=== PATIENT | female | born 2000 | race Caucasian/White ===

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

== ENCOUNTER 2022-11-25 16:29 | Emergency (ER) | payer MEDICAID ==
[~2022-11-25] VITALS: Ht 154.9 cm; Wt 40.5 kg
[2022-11-25 16:37] VITALS: BP 101/69; PULSE 84; RESP 16; TEMP 98.6; O2SAT 96
== END 2022-11-25 20:18 | disposition left against medical advice (07) ==
LOC: ER 17:55
DX: Z53.21 Procedure and treatment not carried out due to patient leaving prior to being seen by health care provider (principal)
CPT/HCPCS: 99281

== ENCOUNTER 2023-04-03 10:59 | Emergency (ER) | payer MEDICAID ==
[~2023-04-03] VITALS: Ht 157.5 cm; Wt 53.0 kg
[2023-04-03 11:10] VITALS: O2SAT 97
[2023-04-03] MEDS ORDERED: KETOROLAC 30MG/ML VIAL IV STA (11:17)
[2023-04-03] MEDS ORDERED: ONDANSETRON HCL 4MG/2ML INJ IV STA (11:17)
[2023-04-03] MEDS ORDERED: SODIUM CHLORIDE 0.9% 1,000 ML IV ONE (11:30)
[2023-04-03 11:48] LABS: HEMATOCRIT. 44.9 % (36.0-48.0); HEMOGLOBIN. 15.2 g/dL (12.0-16.0); MEAN CORPUSCULAR HEMOGLOBIN 30.3 pg (28.0-32.0); MEAN CORPUSCULAR HGB CONC 33.9 g/dL (31.0-37.0); MEAN CORPUSCULAR VOLUME 89.3 fL (81.0-99.0); MEAN PLATELET VOLUME 10.6 fl (7.4-10.4); PLATELET 142 x1000/uL (130-400); RED BLOOD CELL COUNT 5.03 mill/uL (4.2-5.4); RED CELL DISTRIBUTION WIDTH 12.5 % (11.6-14.6); WHITE BLOOD COUNT 15.2 x1000/uL (4.5-11.0)
[2023-04-03 11:52] LABS: DIFFERENTIAL COMMENT 1
[2023-04-03 12:11] LABS: CLARITY URINE CLOUDY (CLEAR); COLOR URINE YELLOW (YELLOW); SPECIFIC GRAVITY URINE 1.025 (1.005-1.030)
[2023-04-03 12:15] LABS: GLUCOSE URINE NEGATIVE (NEGATIVE); KETONES URINE 1+ (NEGATIVE); NITRITE URINE POSITIVE (NEGATIVE); OCCULT BLOOD URINE 3+ (NEGATIVE); PROTEIN URINE 2+ (NEGATIVE); UROBILINOGEN URINE 0.2 E.U./dL (0.2-1.0)
[2023-04-03 12:16] LABS: LEUKOCYTE ESTERASE URINE 2+ (NEGATIVE)
[2023-04-03 12:17] LABS: ALANINE AMINOTRANSFERASE 10 IU/L (10-49); ALBUMIN 4.8 g/dL (3.2-4.8); ASPARTATE AMINOTRANSFERASE 17 IU/L (<34); BILIRUBIN TOTAL 6.7 mg/dL (0.1-1.0); CALCIUM 9.3 mg/dL (8.7-10.4); CARBON DIOXIDE 27 mEq/L (21-32); CHLORIDE 101 mEq/L (98-107); CREATININE 0.9 mg/dL (0.6-1.0); GLUCOSE 155 mg/dL (70-105); PROTEIN TOTAL 7.6 g/dL (6.0-8.3); SODIUM 137 mEq/L (136-145); UREA NITROGEN BLOOD 9 mg/dL (9-23)
[2023-04-03 12:18] LABS: HCG SCREEN NEGATIVE
[2023-04-03 12:28] LABS: MUCUS URINE 1+ /lpf (< = 2+); SQUAMOUS EPITHELIAL CELL URINE 2+ /lpf (RARE/1+)
[2023-04-03 12:29] LABS: BACTERIA URINE 3+; RBC URINE 15-25 /hpf (0-2); WBC URINE TNTC /hpf (0-2)
[2023-04-03] MEDS ORDERED: CEFTRIAXONE 1GM PREMIX 50 ML IV NR (12:30)
[2023-04-03 13:25] LABS: PLATELET ESTIMATE NORMAL
[2023-04-03] MEDS: POTASSIUM CHLORIDE 20MEQ TABLET SR PO NR ×2 (13:45→14:16)
[2023-04-03] MEDS ORDERED: ONDANSETRON HCL 4MG/2ML INJ IV ONE (14:00)
[2023-04-03] MEDS ORDERED: IBUP-2030 MT (15:55)
[2023-04-03] MEDS ORDERED: CEPH500C2 MT (15:55)
[2023-04-03 16:15] VITALS: BP 107/72; PULSE 94; RESP 18; TEMP 98.3
== END 2023-04-03 16:56 | disposition home or self-care (01) ==
LOC: ER 10:59
DX: N12 Tubulo-interstitial nephritis, not specified as acute or chronic (principal); E87.6 Hypokalemia; E80.6 Other disorders of bilirubin metabolism
CPT/HCPCS: 80053; 81003; 81025; 84703; 83690; 85025; 87086; 87186; 36415; 76705; 96361; 96365; 96375; 99285; J0696; J1885; J2405; J7030; Z7610 ×2